=== PATIENT | female | born 1945 | race Caucasian/White ===

== ENCOUNTER 2016-08-21 05:45 | Inpatient (IN) | payer MEDICARE ==
[~2016-08-21] VITALS: Ht 157.5 cm; Wt 40.3 kg
[2016-08-21] VITALS (15 sets, daily range): BP systolic 99–133; BP diastolic 50–73; PULSE 65–100; RESP 7–22; O2SAT 93–100
[2016-08-21] MEDS: Lactated Ringer's 1,000 ML IV SCH ×3 (05:00→07:29)
[~2016-08-21 05:45] MED LIST: ASPI-973 PO; CITA20TA11 PO; LEVO50TA6 PO; POLY17PO6 PO
[2016-08-21] MEDS ORDERED: CeFAZolin 2 Gm/50 mL D5W IV Premix IV ONE (06:00)
[2016-08-21] MEDS ORDERED: Heparin 5,000 Unit/mL Inj SUBQ ONE (06:00)
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
[2016-08-21] MEDS ORDERED: Bupivacaine-MPF 0.5% 30 mL Inj INFILTRATE ONE (07:29)
[2016-08-21] MEDS ORDERED: Dexamethasone 4 mg/mL Inj IVPUSH PRN (08:15)
[2016-08-21] MEDS ORDERED: MetoCLOpramide 5 mg/mL 2 mL Inj IVPUSH PRN ×3 (08:15→12:15)
[2016-08-21] MEDS ORDERED: Lactated Ringer's 500 ML IV PRN (08:15)
[2016-08-21] MEDS ORDERED: Phenylephrine 10,000 mCg/mL Inj IVPUSH PRN (08:15)
[2016-08-21] MEDS ORDERED: Ondansetron 2 mg/mL 2 mL Inj IVPUSH PRN ×3 (08:15→12:15)
[2016-08-21] MEDS ORDERED: Lactated Ringer's 1,000 ML IV SCH (08:15)
[2016-08-21] MEDS ORDERED: EPHEDrine Sulfate 50 mg/mL Inj IVPUSH PRN (08:15)
[2016-08-21] MEDS ORDERED: Ondansetron 2 mg/mL 2 mL Inj ONE (09:35)
[2016-08-21] MEDS ORDERED: Dexamethasone 4 mg/mL Inj ONE (09:35)
[2016-08-21] MEDS ORDERED: Neostigmine 1 mg/mL 5 mL Inj ONE (09:35)
[2016-08-21] MEDS ORDERED: Glycopyrrolate 0.2 mg/mL 5 mL Inj ONE (09:35)
[2016-08-21] MEDS ORDERED: MetoCLOpramide 5 mg/mL 2 mL Inj ONE (09:35)
[2016-08-21] MEDS ORDERED: Rocuronium 10 mg/mL 5 mL Inj ONE (09:35)
[2016-08-21] MEDS ORDERED: Propofol 10,000 mCg/mL 20 mL Inj ONE (09:35)
[2016-08-21] MEDS ORDERED: HYDROcodone-APAP 5-325 mg Tablet PO PRN (10:15)
[2016-08-21] MEDS ORDERED: oxyCODONE-Acetamin 5-325 mg Tablet PO PRN (10:20)
[2016-08-21] MEDS: fentaNYL-PF 50 mCg/mL 2 mL Inj IVPUSH PRN ×2 (10:30→10:58)
--- NOTE | 2016-08-21 10:51 | OP ---
[address] [address] OPERATIVE REPORT PATIENT: MOSES PALACIOS : 1945 MR#: [id number] ADMIT: 08/21/2016 JOB ID: [id number] DATE OF SURGERY: 08/21/2016 PREOPERATIVE DIAGNOSIS(ES): Recurrent small bowel obstruction. POSTOPERATIVE DIAGNOSIS(ES): Recurrent small bowel obstruction. PROCEDURE: 1. Diagnostic laparoscopy. 2. Laparoscopic lysis of adhesions. SURGEON: Timmy De Jesus MD WATER QUALITY TESTER: Rosita Connors PA-C INDICATIONS: The patient is a 71-year-old female who has had recurrent small bowel obstructions. She has had a previous vaginal hysterectomy and single oophorectomy. Six years ago she had an exploratory laparotomy and lysis of adhesions. She had an appendectomy also six years ago. She was admitted to [facility] February 2015 with a recurrent small bowel obstruction. She has had four episodes of small bowel obstruction from August 2015 to the present. She was able to treat those at home simply by minimizing her diet and after approximately two days her symptoms would resolve. She has also had a 20 pound weight loss without explanation. A preoperative CT scan was obtained that showed no explanation for her weight loss, and as expected, no obvious site of her bowel obstruction and she saw Dr. Efrain Thomason MD, a senior center manager in [place], who recommended a surgical consultation. After discussing options with the patient, it was elected to proceed with a diagnostic laparoscopy, possible laparoscopic lysis of adhesions and possible laparotomy. FINDINGS: As expected. She had multiple areas of adhesions. She had adhesions between loops of small bowel and the abdominal wall, particularly in the right lower quadrant. She had multiple areas of interloop adhesions between loops of small bowel and she also had adhesions between the omentum and small bowel. She also had bilateral inguinal hernias. There is no evidence of malignancy or other explanation for her weight loss. Her liver, gallbladder, stomach, small intestine and colon laparoscopically appeared normal. DESCRIPTION OF PROCEDURE: At the beginning and end of the operation, the SCOAP checklist was completed. A general endotracheal anesthetic was induced. She received subcutaneous heparin and IV antibiotics. She had on pneumatic hose and the Haile catheter was inserted. The Haile catheter was removed at the end of the operation. Using ChloraPrep, her abdomen was prepped and draped in the usual fashion. All trocar sites were infiltrated with 0.5% plain bupivacaine. A small incision was made over the left costal margin laterally and a Veress needle was inserted. The abdomen was insufflated with CO2 and then using an optical port, a 5 mm trocar was placed at the same site. There was no evidence of injury to intra-abdominal organs during insufflation. Ultimately, five additional 5 mm ports were placed, all laterally so she ultimately had three on the left and three on the right. Through these ports, the adhesions were taken down. The vast majority of the adhesions were taken down sharply. The cautery was never used but in a few cases an energy device was used to divide omental adhesions. After completing lysis of adhesions, I ran the small bowel from the terminal ileum up into the ligament of Treitz. There was no evidence of injury. There was no evidence of bile leak or bleeding. The pelvis was irrigated with saline. The trocars were removed without evidence of bleeding. The skin incisions were closed with 4-0 Vicryl. Steri-Strips and Band-Aids were applied. The estimated blood loss was 15 cc. There were no apparent complications. The final sponge, needle and instrument counts were announced as correct and the patient was returned to the recovery room in stable condition. Critical Assistance was provided by ELISSA Pulliam
--- NOTE | 2016-08-21 10:51 | PCM.ANEP1 ---
Post Anesthesia Phase 1 PACU Phase 1 Assessment Vital Signs Vital Signs Date Time Temp Pulse Resp B/P Pulse Ox O2 Delivery O2 Flow Rate FiO2 08/21/16 10:45 37.2 86 18 111/65 100 Nasal Cannula 2 08/21/16 10:40 89 17 121/61 100 Simple Mask 8 08/21/16 10:35 100 22 133/70 100 Simple Mask 8 08/21/16 10:30 83 17 129/68 100 Simple Mask 8 08/21/16 10:25 92 15 130/65 100 Simple Mask 8 08/21/16 10:21 36.8 90 16 132/73 100 Simple Mask 8 08/21/16 06:09 36.6 65 16 119/68 100 Room Air Anesthetic Administered: GA Level of Alertness: Awake, talking Pain: No Nausea or Vomiting: No Oxygen Delivery: Room Air Lungs: Normal Air Movement Joe Ledesma MD Aug 21, 2016 10:51
--- NOTE | 2016-08-21 10:51 | PCM.ANEP2 ---
Post Anesthesia Evaluation ASA/CMS Post Anesthesia VS in Patient's Normal Range?: Yes Resp Stable; Airway Patent?: Yes CV Function & Hydration Stable: Yes Mental Status Recovered?: Yes Pain control Satisfactory?: Yes N/V Control Satisfactory?: Yes Joe Ledesma MD Aug 21, 2016 10:51
[2016-08-21] MEDS ORDERED: HYDROmorphone 1 mg/mL Inj IVPUSH PRN (12:15)
[2016-08-21 12:51] LABS: APPEARANCE,URINE CLEAR (CLEAR,HAZY); COLOR,URINE YELLOW (YELLOW); OCCULT BLOOD,URINE NEGATIVE (NEGATIVE); UROBILINOGEN,URINE NORMAL (NORMAL)
[2016-08-21] MEDS: Dextrose 5% Lactated Ringer's 1,000 ML IV SCH ×2 (14:10→22:11)
--- NOTE | 2016-08-21 14:40 | NUR ---
Rec'd from day surgery/medical observation: Alert, oriented. normal vital signs. Reports acceptable pain relief w/ /2 pill percocet, denies nausea. assisted ambulation to the bathroom, was unable to urinate. ambulated in the room for 10min before returning to bed. sipping water and chicken broth. SCD's on while in bed. Visit and discussion of POC by Dr Magdalene De Jesus. Pt's daughter was present.
[2016-08-21] MEDS ORDERED: Ketamine 10 mg/mL 20 mL Inj ONE (15:11)
--- NOTE | 2016-08-21 18:33 | NUR ---
Shift note Assumed care of pt at 1500. Pt alert and very pleasant. IV infusing and placed on pump tubing at 100ml per hour. OR I/O indicated pt with over 1000ml inake and 50ml urine output. Pt thinks she was dehydrated. Unable to void upon arrival to floor per RN. Up to BR attempt at 1600. Unable to void again. Encouraged PO intake. Bladder scan 198mls. Dr De Jesus updated re inability to void yet. Orders received to place kennedy if pt unable to void and bladder scan indicated 400ml. Pt taking PO without N/V. Indicated she didn't want any more percocet (though she only took 1/2 tab at noon). Wanted 650mg tylenol instead which was given. Pt up to void again. States she felt urine "trying to come out" but couldn't void. Will bladder scan after she eats dinner. She's had PO of 500ml intake thus far this shift. Henok NAYLOR. REport to next RN.
[2016-08-21] MEDS: oxyCODONE-Acetamin 5-325 mg Tablet PO PRN ×2 (19:10→23:10)
--- NOTE | 2016-08-21 23:27 | NUR ---
shift note Assumed care at 191. Pt. reporting comfort while laying in bed. Up to BR twice with RN in room to void without difficulty. IV S/L'd. Encouraged pt. to keep drinking fluids and to call RN with any questions. Pt. sx site bandaids C/D/I. HS blood sugar 112. Afebrile, vital signs within md parameters. Pain well controlled with Percocet, pt. taking one percocet tablet at about 2300, progressing towards discharge. Safety checks completed in room, call light in reach. Pt. up to BR, SCD's off while out of bed. Report given to night nurse.
[2016-08-22] VITALS (7 sets, daily range): BP systolic 100–113; BP diastolic 53–58; PULSE 71–82; RESP 16–20; O2SAT 94–99
[2016-08-22] MEDS: oxyCODONE-Acetamin 5-325 mg Tablet PO PRN ×5 (02:22→21:32)
--- NOTE | 2016-08-22 04:57 | NUR ---
Shift Note: VSS. Pt not wanting to move much, ambulate, or get up to void. Continuing to encourage ambulation as it will help with the pain she is feeling. Pt remains reluctant to move. Pt medicated with 1 tablet of Percocet at 0222 as pt stating pain a 10/10. Pt stating not helping, given 0.5 mg Dilaudid at 0320 as well as 10 mg of Reglan. Pt did two loops around the unit. Vlad Khan RN on OSC came up and assessed the pain in case of any development of any complications. Talked with Dr Constantino on the phone regarding patient's status and will continue to monitor closely. Pt calls RN for stand by assist to the bathroom. Gave pt a heating pad to help with pain control.
[2016-08-22] MEDS: Dextrose 5% Lactated Ringer's 1,000 ML IV SCH ×2 (08:11→18:11)
--- NOTE | 2016-08-22 10:55 | PROG NOTE ---
[address] [address] PROGRESS NOTE PATIENT: MOSES PALACIOS : 1945 MR#: [id number] ADMIT: 08/21/2016 JOB ID: [id number] DATE: 08/22/2016 SUBJECTIVE: The patient is seen in followup. She is postoperative day one following extensive laparoscopic lysis of adhesions because of recurrent small bowel obstruction. She denies nausea or vomiting with the exception of some very mild nausea when she has received narcotics. She also has not had flatus or bowel movements. She is up walking. PHYSICAL EXAMINATION: She is alert, in no distress. Temperature 37.0, brachial blood pressure 104/56, pulse 74, respiratory rate 17. Abdomen is flat. Band-Aids are dry. IMPRESSION: Currently doing well. It is not surprising that she has not passed gas or had a bowel movement. She has no evidence of any surgical complication. PLAN: She is encouraged to aggressively ambulate. She can shower and diet as tolerated. She is on MiraLAX and will continue that.
[2016-08-22] MEDS: Polyethylene Glycol (PEG) 17 Gm Powder PO PRN (12:52)
[2016-08-23] MEDS: oxyCODONE-Acetamin 5-325 mg Tablet PO PRN ×4 (02:57→18:23)
[2016-08-23 03:00] VITALS: BP 114/62; PULSE 70; RESP 16; O2SAT 97
[2016-08-23] MEDS: Dextrose 5% Lactated Ringer's 1,000 ML IV SCH ×2 (04:11→14:11)
--- NOTE | 2016-08-23 06:26 | NUR ---
Shift note: Assumed care of patient at 2300. Patient reporting dull ache and wanted no medication at that time. VSS and BS was 106. At 0300 patient came to nurses station after walking halls and asked for pain medication. Rated pain a 4 out of 10. 1 percocet was given and patient stated adequate pain relief. Patient has not had a bowel movement nor passed gas. Assisted patient with shower in AM. Progressing towards discharge.
[2016-08-23 07:53] VITALS: BP 104/58; PULSE 66; RESP 18; O2SAT 96
[2016-08-23] MEDS: Polyethylene Glycol (PEG) 17 Gm Powder PO PRN (08:48)
--- NOTE | 2016-08-23 12:03 | PROG NOTE ---
[address] [address] PROGRESS NOTE PATIENT: MOSES PALACIOS : 1945 MR#: [id number] ADMIT: 08/21/2016 JOB ID: [id number] DATE: 08/23/2016 SUBJECTIVE: Postoperative day two following extensive laparoscopic lysis of adhesions. Today, she is feeling better. She says pain is decreased. She denies nausea and vomiting, but she also denies flatus or bowel movements but feels like she is about to pass gas. PHYSICAL EXAMINATION: She looks very comfortable. She is alert, answering questions, smiling. Temperature 36.7, brachial blood pressure 104/58, pulse 66, respiratory rate 18, O2 sat on room air 96%. Abdomen is mildly distended. Band-Aids are dry. No evidence of bleeding. IMPRESSION: Stable, although has not yet passed gas, but on the other hand, no nausea or vomiting and in general, she is feeling better. She is active. She is up walking. She has taken a shower. PLAN: Will check CBC, BMP and magnesium today. At this point, I still feel comfortable with just using a Hep-Lock. She is still getting MiraLAX, and she is encouraged to continued to be physically active.
[2016-08-23 12:19] LABS: BASOPHILS % (AUTO) 0.1 % (0-3); EOSINOPHILS % (AUTO) 5.5 % (0-5); MONOCYTES % (AUTO) 7.4 % (4-12); Mean Corpuscular Hemoglobin 30.5 pg (27.0-35.0); Mean Corpuscular Volume 92.7 fL (81-100); NEUTROPHILS % (AUTO) 72.5 % (40-74); Platelet Count 186 bil/L (150-400)
[2016-08-23 12:39] LABS: Magnesium 1.7 mg/dL (1.6-2.6)
[2016-08-23 13:15] VITALS: BP 99/60; PULSE 74; O2SAT 98
--- NOTE | 2016-08-23 14:27 | NUR ---
flatulence pt discharge delayed per MD De Jesus due to no flatulence. Pt taking percocet for pain and is effective. daughter at bedside, mike.
[2016-08-23] MEDS ORDERED: Polyethylene Glycol (PEG) 17 Gm Powder PO SCH (15:20)
[2016-08-23 15:30] VITALS: BP 94/50; PULSE 74; RESP 16; O2SAT 100
[2016-08-23 19:17] VITALS: BP 97/58; PULSE 74; RESP 16; O2SAT 96
--- NOTE | 2016-08-23 19:21 | NUR ---
Pt states she passed gas at 1700 this evening. She is still reporting pain at 7-8/10 but is able to ambulate well and is able to get herself out of and back in to bed. Pt states she feels "really full" since dinner. Bowel tones active x4 quadrants, patient has yet to have a BM since admit. Vitals stable, patient has good appetite and is eating 100% of her dinner. AC BG not done because patient's tray was delivered and patient ate before RN was able to assess. All other BG checks have been normal.
[2016-08-24] MEDS: Dextrose 5% Lactated Ringer's 1,000 ML IV SCH ×3 (00:11→17:38)
[2016-08-24 01:00] VITALS: BP 128/69; PULSE 91; RESP 18; O2SAT 99
[2016-08-24 04:00] VITALS: BP 112/63; PULSE 69; RESP 16; O2SAT 96
--- NOTE | 2016-08-24 06:46 | NUR ---
shift note: Patient's VSS throughout shift. Patient sleeping well during night. Has intermittent sharp/spasm like pain in her abdomen. Ambulated halls during night and states passing gas. Encouraged incentive spirometer which pt did twice during night. Also encouraged patient to use pillow to brace abdomen when coughing, yawning and pt states she feels better when doing so.
[2016-08-24] MEDS: Polyethylene Glycol (PEG) 17 Gm Powder PO PRN (07:56)
--- NOTE | 2016-08-24 09:05 | PROG NOTE ---
[address] [address] PROGRESS NOTE PATIENT: MOSES PALACIOS : 1945 MR#: [id number] ADMIT: 08/21/2016 JOB ID: [id number] DATE: 08/24/2016 SUBJECTIVE: The patient is now postoperative day three following extensive laparoscopic lysis of adhesions for recurrent small bowel obstructions. Last night, and again this morning, she started passing gas. She is feeling better. She took one oxycodone with acetaminophen during the night. She is eating regular food. She has not had nausea or vomiting. DATE: PHYSICAL EXAMINATION: She is alert, in no distress. Temperature 37.0, brachial blood pressure 112/63, pulse 69, respiratory rate 16, O2 sat room air 96%. Her abdomen is less distended than yesterday. In fact it looks normal. All her Band-Aids are dry and she is going to remove those today. IMPRESSION: Doing well. PLAN: I suspect she will be ready for discharge tomorrow morning. She will be assessed at mid day and she possibly could go home later this afternoon. She already has her pain medication for postoperative care at home filled and it is at home. She would continue on all her normal medications. She will return to see me in 7-14 days.
[2016-08-24 09:45] VITALS: BP 136/67; PULSE 65; RESP 12; O2SAT 97
[2016-08-24 13:00] VITALS: BP 117/65; PULSE 62; RESP 17; O2SAT 100
[2016-08-24 16:00] VITALS: BP 111/64; PULSE 62; RESP 16; O2SAT 99
--- NOTE | 2016-08-24 16:43 | NUR ---
Social work- Initial Assessment D/A: Pt is a 71 year old female with history of SBO who is currently admitted after a planned laparoscopic surgery. Pt's PCP is Dr. Nasima Gabriel and pt has group health medicare insurance. Pt's surgeon was Dr. De Jesus and she has planned follow up with him post discharge. Pt has been ambulatory in the hospital and was independent with all ADL's prior to surgery. Pt has had outpatient physical therapy for a torn meniscus but has otherwise never used SNF or services. Pt reports that her advanced directives and POLST are on file with the hospital and EMR shows documentation of this. Pt denies any ongoing needs currently or at discharge. Pt's family will assist with transportation at discharge home. P: RELIGIOUS RITUAL SLAUGHTERER met with pt who was independent at baseline with all ADL's and has no needs returning home at discharge. ARVIN Santos Addendum: 08/24/16 at 1646 by JAYLEN HEALY Amended: Links added.
[2016-08-24 19:00] VITALS: BP 135/67; PULSE 68; RESP 16; O2SAT 99
[2016-08-24] MEDS: oxyCODONE-Acetamin 5-325 mg Tablet PO PRN ×2 (20:04→23:56)
[2016-08-25 00:15] VITALS: BP 126/64; PULSE 62; RESP 16; O2SAT 99
--- NOTE | 2016-08-25 00:17 | NUR ---
shift note pt's VSS, walking frequently and eating well, preforming all self cares. Pts pain is not well controlled this evening. Pt states the acetaminophen is causing new nausea this evening that is very mild, but makes her reticent to take the medication. Pt is very afraid to take Percocet due to its constipating qualities. She has struggled with constipation before this surgery and does not want to have it again. This RN spoke to pt at length on ways to manage pain, including splinting and relaxation techniques, as well as pharm pain management. RN encouraged pt to speak to the physician in the am about medications to aid if constipation occurs, as the pain tonight is keeping her awake and she does not wish to take much narcotic pain medication. Pt also wishes to take Aleve as her NSAID of choice at home. This RN encouraged pt to speak with the physician before beginning that medication at home.
[2016-08-25] MEDS: Polyethylene Glycol (PEG) 17 Gm Powder PO PRN (07:21)
[2016-08-25 07:25] VITALS: BP 107/69; PULSE 65; RESP 18; O2SAT 98
[2016-08-25] MEDS: oxyCODONE-Acetamin 5-325 mg Tablet PO PRN ×2 (08:29→10:07)
--- NOTE | 2016-08-25 09:19 | PCM.DISURG ---
Surgical Discharge Instruction Date of Service Aug 25, 2016 Dates of Hospitalization Date of Hospital Admission Aug 21, 2016 at 15:10 Providers Admitting Physician: Timmy De Jesus MD Primary Care Physician: Eileen Gabriel MD Attending Physician: Timmy De Jesus MD Discharge Diagnosis Discharge Diagnosis Intra abdominal adhesions with recurrent small bowel obstruction Post Operative diagnosis laparoscopic lysis of adhesions Diet Discharge Diet: No restrictions, Other (you may want to take it easy and advance your diet slowly) Activity Discharge Activity-General: No restrictions Dressing and Incisional Care Dressing Care: Allow Steri Stripes to fall off Hygiene: May shower Follow Up Plan Follow Up Plan 2-3 weeks with Vishnu Murphy MD Aug 25, 2016 09:19
--- NOTE | 2016-08-25 11:30 | NUR ---
shift note- Patient up and showered this AM. She has walked in the hallway several times, several full loops. She has been active in the room and siting up in chair. Steristrips to lap incisions x6. Pt understands how to care for them at home. She knows to continue cough and deep breathe at home and has an incentive spirometer. Pain controlled with 1/2 percocet at a time. Daughter will check in on pt at home. Pt Dc'd home with daughter.
--- NOTE | 2016-08-25 13:57 | PROG NOTE ---
[address] [address] PROGRESS NOTE PATIENT: MOSES PALACIOS : 1945 MR#: [id number] ADMIT: 08/21/2016 JOB ID: [id number] DATE: 08/25/2016 SUBJECTIVE: The patient is doing well postop laparoscopic lysis of adhesions. She had a small bowel movement, continues to pass gas and is tolerating soft food. Her abdominal examination is benign. Her incisions are healing without sign of infection. IMPRESSION AND PLAN: We will move ahead and discharge her home with followup with Dr. De Jesus.
--- NOTE | 2016-08-27 15:57 | PCM.DC.SUR ---
Discharge Summary Date of Service: Date of Hospital Admission: Aug 21, 2016 at 15:10 Date of Operation(s): 08-21-16 Date of Discharge: 08-25-16 Diagnosis at Time of Discharge Primary diagnoses: Recurrent small bowel obstructions Other diagnoses: Atypical chest pain Paroxysmal atrial fibrillation Irritable bowel syndrome Anxiety Hearing loss History of GI reflux History of osteoporosis History of peptic ulcer disease History of rheumatic fever 2 as a child Hyperlipidemia Problems: Operation 1. Diagnostic laparoscopy. 2. Laparoscopic lysis of adhesions. Brief History and Physical: The patient is a 71-year-old female who has had recurrent small bowel obstructions. She has had a previous vaginal hysterectomy and single oophorectomy. Six years ago she had an exploratory laparotomy and lysis of adhesions. She had an appendectomy also six years ago. She was admitted to [facility] February 2015 with a recurrent small bowel obstruction. She has had four episodes of small bowel obstruction from August 2015 to the present. She was able to treat those at home simply by minimizing her diet and after approximately two days her symptoms would resolve. She has also had a 20 pound weight loss without explanation. A preoperative CT scan was obtained that showed no explanation for her weight loss, and as expected, no obvious site of her bowel obstruction and she saw Dr. Efrain Thomason MD, a raw products director in [place], who recommended a surgical consultation. After discussing options with the patient, it was elected to proceed with a diagnostic laparoscopy, possible laparoscopic lysis of adhesions and possible laparotomy. Consultants: None. Hospital Course: The patient was taken to the operating room and underwent the above operation. There were no intraoperative complications. Postoperatively she was admitted to the surgical floor. On her first postsurgical day the patient was seen by Dr. Timmy De Jesus: SUBJECTIVE: The patient is seen in followup. She is postoperative day one following extensive laparoscopic lysis of adhesions because of recurrent small bowel obstruction. She denies nausea or vomiting with the exception of some very mild nausea when she has received narcotics. She also has not had flatus or bowel movements. She is up walking. PHYSICAL EXAMINATION: She is alert, in no distress. Temperature 37.0, brachial blood pressure 104/56, pulse 74, respiratory rate 17. Abdomen is flat. Band-Aids are dry. IMPRESSION: Currently doing well. It is not surprising that she has not passed gas or had a bowel movement. She has no evidence of any surgical complication. PLAN: She is encouraged to aggressively ambulate. She can shower and diet as tolerated. She is on MiraLAX and will continue that. On her second postsurgical day the patient was seen by Dr. Timmy De Jesus: SUBJECTIVE: Postoperative day two following extensive laparoscopic lysis of adhesions. Today, she is feeling better. She says pain is decreased. She denies nausea and vomiting, but she also denies flatus or bowel movements but feels like she is about to pass gas. PHYSICAL EXAMINATION: She looks very comfortable. She is alert, answering questions, smiling. Temperature 36.7, brachial blood pressure 104/58, pulse 66, respiratory rate 18, O2 sat on room air 96%. Abdomen is mildly distended. Band-Aids are dry. No evidence of bleeding. IMPRESSION: Stable, although has not yet passed gas, but on the other hand, no nausea or vomiting and in general, she is feeling better. She is active. She is up walking. She has taken a shower. PLAN: Will check CBC, BMP and magnesium today. At this point, I still feel comfortable with just using a Hep-Lock. She is still getting MiraLAX, and she is encouraged to continued to be physically active. Her third postsurgical day the patient was seen by Dr. Timmy De Jesus: SUBJECTIVE: The patient is now postoperative day three following extensive laparoscopic lysis of adhesions for recurrent small bowel obstructions. Last night, and again this morning, she started passing gas. She is feeling better. She took one oxycodone with acetaminophen during the night. She is eating regular food. She has not had nausea or vomiting. DATE: PHYSICAL EXAMINATION: She is alert, in no distress. Temperature 37.0, brachial blood pressure 112/63, pulse 69, respiratory rate 16, O2 sat room air 96%. Her abdomen is less distended than yesterday. In fact it looks normal. All her Band-Aids are dry and she is going to remove those today. IMPRESSION: Doing well. PLAN: I suspect she will be ready for discharge tomorrow morning. She will be assessed at mid day and she possibly could go home later this afternoon. She already has her pain medication for postoperative care at home filled and it is at home. She would continue on all her normal medications. She will return to see me in 7-14 days. On her fourth postsurgical day the patient was seen by Dr. Vishnu Constantino: SUBJECTIVE: The patient is doing well postop laparoscopic lysis of adhesions. She had a small bowel movement, continues to pass gas and is tolerating soft food. Her abdominal examination is benign. Her incisions are healing without sign of infection. IMPRESSION AND PLAN: We will move ahead and discharge her home with followup with Dr. De Jesus. Pathology: None. Disposition: The patient was discharged home tolerating a soft diet with no nausea or vomiting. Pain was well-controlled on oral analgesics. She is able to ambulate independently. Follow-up Plan: Follow up is in 2-[address] De Jesus at the [facility] outpatient general surgery clinic. Aspirin (Aspirin) 81 Mg Tablet 81 MG PO QAM (Reported) Citalopram (Citalopram) 20 Mg Tablet 20 MG PO HS (Reported) Levothyroxine (Levothyroxine) 50 Mcg Tablet 50 MCG PO DAILY (Reported) Polyethylene Glycol 3350 (Miralax) 17 Gm Powd.pack 17 GM PO 2X/WEEK (Reported) copies to: Eileen Gabriel MD, Danielle B PA-C Aug 27, 2016 15:03
== END 2016-08-25 12:00 | disposition home or self-care (01) | DRG 337 ==
LOC: SAS 05:45 → FBC 15:10
PROVIDERS: ADMIT Surgery; ATTEND Surgery
PROC: 0DN84ZZ Release Small Intestine, Percutaneous Endoscopic Approach (ICD-10-PCS; principal; 2016-08-21 07:30)
DX: K56.5 Intestinal adhesions [bands] with obstruction (postinfection) (principal); E03.9 Hypothyroidism, unspecified; Z79.82 Long term (current) use of aspirin